=== PATIENT | male | born 2000 | race Caucasian/White ===

== ENCOUNTER 2023-02-27 21:47 | Emergency (ER) | payer MEDICAID ==
[~2023-02-27] VITALS: Ht 175.3 cm; Wt 89.2 kg
[2023-02-27 21:58] VITALS: BP 142/55; O2SAT 99
[2023-02-28] MEDS ORDERED: IBUP-2028 MT (01:55)
[2023-02-28 02:10] VITALS: PULSE 77; RESP 16; TEMP 98.2
== END 2023-02-28 02:14 | disposition home or self-care (01) ==
LOC: ER 21:47
DX: S09.90XA Unspecified injury of head, initial encounter (principal); S13.4XXA Sprain of ligaments of cervical spine, initial encounter; Z88.0 Allergy status to penicillin; X58.XXXA Exposure to other specified factors, initial encounter; Y93.89 Activity, other specified; Y92.89 Other specified places as the place of occurrence of the external cause; Y99.8 Other external cause status
CPT/HCPCS: 99284

== ENCOUNTER 2024-06-06 02:38 | Emergency (ER) | payer MEDICAID ==
[~2024-06-06] VITALS: Ht 172.7 cm; Wt 90.0 kg
[~2024-06-06 02:38] MED LIST: IBUP-2028 MT
[2024-06-06 02:44] VITALS: TEMP 36.2; O2SAT 100
[2024-06-06 05:43] VITALS: BP 146/72; PULSE 93; RESP 18
[2024-06-06] MEDS: IBUPROFEN 600MG TABLET PO ONE (05:43)
== END 2024-06-06 08:58 | disposition home or self-care (01) ==
LOC: ER 02:38
DX: S16.1XXA Strain of muscle, fascia and tendon at neck level, initial encounter (principal); S13.4XXA Sprain of ligaments of cervical spine, initial encounter; R10.9 Unspecified abdominal pain; R07.89 Other chest pain; Z88.0 Allergy status to penicillin; V49.9XXA Car occupant (driver) (passenger) injured in unspecified traffic accident, initial encounter; Y93.89 Activity, other specified; Y92.89 Other specified places as the place of occurrence of the external cause; Y99.8 Other external cause status
CPT/HCPCS: 71045; 74176; 99284

== ENCOUNTER 2024-12-19 19:13 | Emergency (ER) | payer MEDICAID ==
[~2024-12-19] VITALS: Ht 162.6 cm; Wt 70.0 kg
[2024-12-19 19:30] VITALS: O2SAT 98
[2024-12-19 20:05] LABS: BASOPHILS % 0.4 % (0.0-2.0); EOSINOPHILS % 0.4 % (0.0-5.0); HEMATOCRIT. 42.6 % (42.0-52.0); HEMOGLOBIN. 14.2 g/dL (14.0-18.0); LYMPHOCYTES % 28.2 % (20.0-50.0); MEAN PLATELET VOLUME 7.3 fl (7.4-10.4); MONOCYTES % 5.4 % (2.0-8.0); NEUTROPHILS % 65.6 % (40.0-76.0); PLATELET 280 x1000/uL (130-400); RED BLOOD CELL COUNT 4.95 mill/uL (4.7-6.1); RED CELL DISTRIBUTION WIDTH 13.4 % (11.6-14.6)
[2024-12-19 20:35] LABS: CREATININE 1.1 mg/dL (0.6-1.3)
[2024-12-19 20:36] LABS: TROPONIN I HIGH SENSITIVITY < 4 ng/L (3.0-53); UREA NITROGEN BLOOD 11 mg/dL (9-23)
[2024-12-19 20:37] LABS: ASPARTATE AMINOTRANSFERASE 29 IU/L (<34)
[2024-12-19 20:38] LABS: BILIRUBIN DIRECT 0.2 mg/dL (<=3.0); BILIRUBIN TOTAL 0.6 mg/dL (0.1-1.0); PROTEIN TOTAL 6.7 g/dL (6.0-8.3)
[2024-12-19 21:10] VITALS: BP 118/65; PULSE 60; RESP 13; TEMP 36.9; O2SAT 99
[2024-12-19] MEDS: POTASSIUM CHLORIDE 20MEQ/PACKET PO ONE (21:15)
[2024-12-19 21:18] LABS: *AMPHETAMINES SCREEN URINE NEGATIVE (NEGATIVE); *BARBITURATES SCREEN URINE NEGATIVE (NEGATIVE); *BENZODIAZEPINES SCREEN URINE NEGATIVE (NEGATIVE); *COCAINE SCREEN URINE NEGATIVE (NEGATIVE); CANNABINOID URINE SCREEN NEGATIVE (NEGATIVE); METHADONE URINE SCREEN NEGATIVE (NEGATIVE); OPIATES URINE SCREEN NEGATIVE (NEGATIVE); PHENCYCLIDINE URINE SCREEN NEGATIVE (NEGATIVE)
[2024-12-19 21:19] LABS: ECSTASY MDMA SCREEN URINE NEGATIVE (NEGATIVE)
== END 2024-12-19 21:30 | disposition home or self-care (01) ==
LOC: ER 19:13 → CMPBEDREQ 12-20 07:21
DX: R20.2 Paresthesia of skin (principal); R06.02 Shortness of breath; Z88.0 Allergy status to penicillin; Z79.899 Other long term (current) drug therapy
CPT/HCPCS: 36415; 71045; 80048; 80076; 80305; 83735; 83880; 84484; 85025; 93005; 99285